=== PATIENT | male | born 1985 | race Two or more races ===

== ENCOUNTER 2020-02-01 08:15 | Emergency (ER) | payer SELFPAY ==
[~2020-02-01] VITALS: Ht 167.6 cm; Wt 56.7 kg
[2020-02-01 08:20] VITALS: BP 156/91
--- NOTE | 2020-02-01 08:23 | NUR ---
urine collected and sent to lab
--- NOTE | 2020-02-01 08:44 | NUR ---
Patient discharged to home in stable condition. Written and verbal after care instructions given. Patient verbalizes understanding of instruction.
== END 2020-02-01 08:44 | disposition home or self-care (01) ==
LOC: ER 08:19
DX: Z20.2 Contact with and (suspected) exposure to infections with a predominantly sexual mode of transmission (principal)
CPT/HCPCS: 87491; 87591